=== PATIENT | male | born 1990 | race Caucasian/White ===

== ENCOUNTER 2019-03-23 16:07 | Emergency (ER) | payer BC ==
[~2019-03-23] VITALS: Ht 172.7 cm; Wt 59.0 kg
[2019-03-23 16:16] VITALS: BP 162/88
[2019-03-23 16:29] VITALS: BP 162/88
--- NOTE | 2019-03-23 16:31 | NUR ---
ARRIVAL PT TO ED[facility]. R ARM/HAND IS WARM TO TOUCH, SWELLING NOTED IN HAND, GOLFBALL SIZE RAISED AREA NOTED TO TOP OF R WRIST. NO STREAKS, NO REDNESS NOTED. HR VARIES FROM MID 90'S TO 120. REPORTED FINDINGS TO EDP.
[2019-03-23] MEDS ORDERED: TORADOL ONE (16:32)
[2019-03-23] MEDS ORDERED: ROCEPHIN ONE (16:32)
[2019-03-23] MEDS ORDERED: LIDOCAINE 1% VIAL ONE (16:32)
[2019-03-23] MEDS ORDERED: ROCEPHIN IM STA (16:33)
--- NOTE | 2019-03-23 16:44 | ER.PDOC ---
General Chief Complaint: Extremities Stated Complaint: SWOLLEN ARM Time seen by MD: 16:30 Source: patient Exam Limitations: no limitations History of Present Illness Initial Comments Pt with right forearm swelling, pain and redness/warmth, starting this morning. Had a previous surgery on a cyst that was removed from that area Timing/Duration: 4-6 hours Severity: moderate Location: RUE Quality: painful Identified Cause: no Past Medical History Medical History: asthma Surgical History: other Social History Smoking: non-smoker Alcohol Use: heavy Drug Use: none Skin: see HPI Physical Exam General Appearance: alert, no distress Skin: warm/dry, nml color, tender indurated area, with erythema Location: posterior, RUE Character: asymmetric, erythematous With: warmth, tenderness, swelling Extremities: non-tender, nml ROM, no edema EENT: eyes nml inspection, lips/gums nml, pharynx nml Neck: trachea midline, no swelling Respiratory: no resp. distress, breath sounds nml CVS: reg. rate & rhythm, heart sounds nml Abdomen: non-tender, no organomegaly Rectal: non-tender NEURO/PSYCH: oriented x 3, CN's nml as tested, motor nml, sensation nml, mood/affect nml Results/Orders Results/Orders Orders - JAK JASMINE MD Lidocaine Hcl (Lidocaine 1% Vial) (03/23/19 16:32) Ketorolac Tromethamine (Toradol) (03/23/19 16:32) Ceftriaxone Sodium (Rocephin) (03/23/19 16:32) Ceftriaxone Sodium (Rocephin) (03/23/19 16:33) Ketorolac Tromethamine (Toradol) (03/23/19 17:00) Vital Signs Date Time Temp Pulse Resp B/P (MAP) Pulse Ox O2 Delivery O2 Flow Rate FiO2 03/23/19 16:29 98.4 109 16 162/88 (112) 98 Room Air 03/23/19 16:16 98.4 109 16 03/23/19 16:16 98.4 109 16 98 Room Air Administered Medications Medications (Trade) Dose Ordered Sig/Kina Route PRN Reason Start Time Stop Time Status Last Admin Dose Admin Ceftriaxone Sodium (Rocephin) 1,000 mg STAT STAT IM 03/23/19 16:33 03/23/19 16:35 DC 03/23/19 16:43 1,000 MG Ketorolac Tromethamine (Toradol) 60 mg OT ONCE IM 03/23/19 17:00 03/23/19 17:01 03/23/19 16:42 60 MG Departure Time of Disposition: 16:49 Disposition: 01 HOME, SELF-CARE Impression: Primary Impression: Cellulitis Condition: Stable Patient Instructions: Cellulitis, [id number] Referrals: PCP,UNKNOWN (PCP) PRIMARY CARE PROVIDER Duration or Time Spent with Pa: 15 JAK JASMINE MD Mar 23, 2019 16:44
[2019-03-23] MEDS ORDERED: TORADOL IM ONE (17:00)
[2019-03-23 17:05] VITALS: BP 123/82
== END 2019-03-23 17:05 | disposition home or self-care (01) ==
LOC: ER 16:07
DX: L03.113 Cellulitis of right upper limb (principal); J45.909 Unspecified asthma, uncomplicated; Z79.1 Long term (current) use of non-steroidal anti-inflammatories (NSAID)
CPT/HCPCS: 96372 ×2; 99284; J0696; J1885; J2001